=== PATIENT | female | born 1950 | race Caucasian/White ===

== ENCOUNTER 2019-07-06 15:05 | Inpatient (IN) | payer OTHER ==
[~2019-07-06] VITALS: Ht 152.4 cm; Wt 103.0 kg
--- NOTE | ~2019-07-06 | H ---
[facility] [place] [address] HISTORY AND PHYSICAL Name: YASMIN LAUREANO Room #: 249-P [facility] IN M.R.#: [id number] Admission: 07/06/19 ������������������ Attend Phys: Fern Roman MD Discharge: ������������������ Date of : 46 Report #: [id number] THIS REPORT FOR: //name// CC: Fern Doran DATE OF SERVICE: 07/06/2019 PRIMARY CARE PHYSICIAN: Dr. Melody Doran. PRIMARY RN REVIEW: Dr. Patterson. CHIEF COMPLAINT: Dizziness going on for 3 weeks. HISTORY OF PRESENT ILLNESS: The patient is a very pleasant 69-year-old female with a known history of rheumatoid arthritis and morbid obesity. The patient informs me that she has been having these brief episodes of dizziness; which resolved right away as soon as she sits down and puts her head down. She does not have any vertiginous component. She has not had any syncopal episode and she has felt uncomfortable in her left ear, but not sure about. She has not had any discharge or has not been diagnosed with ear infection. She informs me that the discomfort is mainly because she can hear her pulse in her ear, but she has not had any palpitations. She denies any chest pain associated with it and there is, however, exertional component with the dizziness, but the patient denies any history of hypertension, diabetes, hyperlipidemia and informs me that she has been pretty healthy pretty much all her life. The patient denies any fever, chills or night sweats. She has not had any sore throat, sinus drainage with rheumatoid arthritis. She understands that she is a high risk patient. PAST MEDICAL HISTORY: Significant for, 1. Rheumatoid arthritis. 2. Major depression. ALLERGIES: THE PATIENT IS ALLERGIC TO PENICILLIN, WHICH CAUSES SWELLING UP OF WHOLE BODY HIVES AND FEVER. PERSONNEL AND SOCIAL HISTORY: The patient denies any tobacco use. She is a lifetime nontobacco user. The patient has not had any alcohol in 9 years and prior to that, she was a very occasional social drinker. FAMILY HISTORY: Mother of heart problems and COPD and was tobacco user and father, she has not had any touch for the last 60 years. PAST SURGICAL HISTORY: 1. The patient has had 2 back surgeries with franko and screws in the lower back. 3. Cholecystectomy. [address] [address] HISTORY AND PHYSICAL Name: YASMIN LAUREANO Room #: 249-P [facility] IN .R.#: [id number] Admission: 07/06/19 ������������������ Attend Phys: Fern Roman MD Discharge: ������������������ Date of : 46 Report #: [id number] 3. Appendectomy. 4. Left knee surgery x 2. 5. Bilateral ankle surgery and the lateral malleolus. REVIEW OF SYSTEMS: Ten point review of system was done and please see HPI above. The patient denies any weakness or numbness of any part of body. Denies any difficulty with speech or difficulty with comprehension. The patient has not had any history of stroke and denies any history of diabetes, hypertension and hyperlipidemia. The patient informs me that she has not had any fall or any new musculoskeletal pain findings other than that her usual rheumatoid arthritis pain for which she takes Tylenol. PHYSICAL EXAMINATION: VITAL SIGNS: Temperature 36.7, heart rate 95, respirations 16, blood pressure 124/65, pulse oximetry 99% on room air. GENERAL: Alert and oriented to time, place and person, very pleasant 69-year-old female who is in no acute distress as long as she is lying down. HEENT: Normocephalic, atraumatic. Pupils equally round, reactive to light. Conjunctivae clear. Extraocular muscle movement are intact. Oropharynx is clear. Mucous membranes are moist. NECK: Supple, no JVD, no lymphadenopathy. HEART: S1, S2 regular. No murmur, no S3, no S4. LUNGS: Clear to auscultation bilaterally without any crackles or wheezes. ABDOMEN: Soft, nontender, nondistended, normal active bowel sounds. EXTREMITIES: Without any edema in both lower extremities. NEUROLOGIC: Completely nonfocal. LABORATORY DATA: WBC 9000, hemoglobin of 13.2, hematocrit 39.0, platelets 325. Differential is within normal limits. Chemistries indicate sodium 134, potassium 4.1, chloride 97, bicarbonate 26, anion gap 11, BUN 10, creatinine 0.8, estimated GFR 71, glucose 120, calcium 9.6, total bilirubin 0.6, AST 33, ALT 24 and alkaline phosphatase 95. Troponin I is less than 0.06. Total protein 7.3, albumin 4.1. CT scan of the head without contrast indicates no acute intracranial process and chest x-ray indicates no acute cardiopulmonary process with a large hiatal hernia. Electrocardiogram done in the Emergency Room indicates a sinus rhythm, atrial premature complexes and borderline prolonged QT interval. ASSESSMENT: 1. Dizziness with exertional component. 2. Rheumatoid arthritis. 3. Morbid obesity. 4. Elevated blood pressure without the diagnosis of hypertension. 5. Vascular tinnitus in the left ear. [facility] [address] [place] [address] HISTORY AND PHYSICAL Name: YASMIN LAUREANO Room #: 249-P ADM IN M.R.#: [id number] Admission: 07/06/19 ������������������ Attend Phys: Fern Roman MD Discharge: ������������������ Date of : 46 Report #: [id number] 6. Full code. 7. The patient does not have a durable power of district attorney for health and actually she informs me that she has no one that can be in a position where they can make decision for the patient and so she would like to work with the aids social worker to make advanced directives. PLAN: The patient is because of the exertional component to her dizziness, I would go ahead and do 3 sets of cardiac enzymes and Cardiology consult and will get an echocardiogram tomorrow morning. The patient also we will order also fasting lipids tomorrow morning, aspirin 81 mg daily to be started and will write for fall precaution as well as neuro checks. Sublingual nitroglycerin for chest pain or dizziness and will give Pepcid for GI prophylaxis and Lovenox for DVT prophylaxis. We will do lipid profile also tomorrow morning. Interestingly, on chest x-ray, the patient has a very large hiatal hernia and so we will write for reflux precaution and next we will go ahead and check TSH as well as a part of a maintenance. Plan of care was discussed with the patient in detail and for morbid obesity, the patient will benefit from padder cushion consult and a weight reduction plan. ��������������������������������������������� ���������������������������������������� By: ��������������������������������������������� 194 [id number] Fern Roman MD /nt
[~2019-07-06 15:05] MED LIST: ANTIDEPRESSANT; BONIVA150 MG PO; CALCIUM 600 +1 EAC1 PO; FISHOIL PO; FOLIC ACID; HYDROXYCHLOROQ200 M1 PO; METHOTREXATE; PREDNISONE 5 MG5 M1 PO; REMICADE IV; VIT D PO; WOMEN'S ONE DA1 EACH PO
[2019-07-06 15:06] VITALS: BP 124/65
[2019-07-06 16:24] LABS: ANION GAP 11 mmol/L (7-16); BUN 10 mg/dL (7-18); CALCIUM 9.6 mg/dL (8.5-10.1); CHLORIDE 97 mmol/L (98-107); CO2 26 mmol/L (21-32); CREATININE 0.8 mg/dL (0.6-1.0); GLUCOSE 120 mg/dL (74-106); POTASSIUM 4.1 mmol/L (3.5-5.1); SODIUM 134 mmol/L (136-145)
[2019-07-06 16:34] LABS: ALBUMIN 4.1 g/dL (3.4-5.0); SGOT 33 U/L (15-37); SGPT 24 U/L (30-65); TOTAL BILIRUBIN 0.6 mg/dL (<0.1-1.0); TOTAL PROTEIN 7.3 g/dL (6.4-8.2); TROPONIN-I <0.06 ng/mL (<0.06)
[2019-07-06 16:47] LABS: ABSOLUTE NEUTROPHILS 4.5 thou/uL (1.4-8.2); BASOPHILS 0.6 % (0.0-2.0); EOSINOPHILS 0.3 % (0.0-3.0); HEMOGLOBIN 13.2 gm/dL (12.0-15.0); LYMPHOCYTES 42.1 % (24.0-44.0); MCH 32.5 pg (26.0-34.0); MCHC 33.8 g/dL (28.0-37.0); MCV 96.1 fL (80.0-100.0); PLATELET COUNT 325 thou/uL (150-400); RBC 4.06 mil/uL (4.20-5.00); RDW 13.9 % (10.5-14.5)
[2019-07-06 18:39] VITALS: BP 150/66
--- NOTE | 2019-07-06 18:59 | NUR ---
ATTEMPTED TO CALL REPORT TO ICU. NURSE STATES SHE WILL CALL BACK IN 5 MIN
[2019-07-06 19:29] VITALS: BP 135/78
[2019-07-06 19:45] VITALS: BP 147/80
[2019-07-07] VITALS (10 sets, daily range): BP systolic 96–168; BP diastolic 45–71
[2019-07-07 02:19] LABS: TROPONIN-I <0.06 ng/mL (<0.06)
[2019-07-07] MEDS ORDERED: TRAMADOL 50 MG50 MG PO (02:30)
[2019-07-07] MEDS ORDERED: SULFASALAZINE500 M5 PO (02:31)
[2019-07-07] MEDS ORDERED: METHOTREXATE 22.5 MG PO (02:32)
[2019-07-07] MEDS ORDERED: VOLTAREN GEL 1100 G2 TOP (02:32)
[2019-07-07] MEDS ORDERED: LEXAPRO20 MG PO (02:33)
[2019-07-07] MEDS ORDERED: NORCO 5-325 TA1 EAC1 PO (02:33)
[2019-07-07] MEDS ORDERED: CRESTOR40 MG PO (02:33)
[2019-07-07] MEDS ORDERED: AMBIEN 5 MG TABL5 M1 PO (02:34)
[2019-07-07] MEDS ORDERED: HYDROCHLOROTHIA25 M2 PO (02:34)
[2019-07-07] MEDS ORDERED: NEXIUM40 MG PO (02:36)
[2019-07-07 03:04] LABS: CHOLESTEROL 124 mg/dL (<200); HDL CHOLESTEROL 66 mg/dL (>40); LDL CHOLESTEROL 46 mg/dL (<100); TC:HDL 1.9 Ratio (Not establshd); TRIGLYCERIDE 63 mg/dL (<150); VLDL 13 mg/dL (<40)
--- NOTE | 2019-07-07 06:30 | NUR ---
PT ARRIVED IN ICU FROM ER AT 1940 LAST NIGHT. PT'S STATUS IS M/S TELE. PT A&O; DENIES DIZZINESS AT THIS TIME. PT SAYS THAT SHE ONLY HAS DIZZY SPELLS WHEN UP AND MOVING AROUND. UNSURE OF CAUSE AT THIS TIME. TROPONIN CHECKED AGAIN TWICE, BOTH WERE NEGATIVE. OBTAINED ORDER FOR TRAMADOL FOR PT'S ARTHRITIS PAIN. PT HAD AN EPISODE OF NAUSEA EARLIER THIS MORNING, ZOFRAN GIVEN. WILL CONTINUE TO MONITOR.
--- NOTE | 2019-07-07 14:42 | EKG ---
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 : 1950 Requested By: Manpreet Medel Order Number: [id number] MD: Henry Gold Measurements Intervals [place] Rate: 94 P: -22 FL: 138 QRS: 4 QRSD: 101 T: 32 QT: 386 QTc: 483 Interpretive Statements Sinus rhythm Atrial premature complexes RSR' in V1 or V2, right VCD Borderline prolonged QT interval No previous ECG available for comparison Electronically Signed On 07-07-2019 14:42:19 CDT by Henry Gold [email or web address] ��������������������������������������������� <ELECTRONICALLY SIGNED> ���������������������������������������� By: Henry Gold MD ��������������������������������������������� 07/07/19 1442 1520 1520 Henry Gold MD /LEIGHANN
--- NOTE | 2019-07-07 17:45 | NUR ---
Assumed care approx. 0700 this AM. Patient made aware today that she has a hiatal hernia, but unsure as to why she has been having dizzy episodes. Vitals have been stable. No distress noted. Chronic pain noted due to her arthritis. Patient is prepared and ready to work with therapies to assess her strength and ability in hopes to have no more syncopal episodes. Patient did well with ambulation today. Patient gave herself a bed bath and got up to do her own oral care. Patient hopeful to not have to be in the hospital much longer. Progression made toward plan of care in place.
[2019-07-08 04:19] VITALS: BP 132/45
--- NOTE | 2019-07-08 04:27 | NUR ---
PT RESTED WELL, PAIN WELL MANAGED, NO EPSIDOES OF DIZZINESS OR SYCOPE AT NIGHT.
[2019-07-08 06:47] LABS: FOLIC ACID 5.7 ng/mL (8.6-58.9); TSH 1.996 uIU/mL (0.358-3.740)
[2019-07-08 08:59] VITALS: BP 140/59
[2019-07-08 16:23] VITALS: BP 135/63
[2019-07-08 16:25] VITALS: BP 148/67
[2019-07-08 16:27] VITALS: BP 124/66
--- NOTE | 2019-07-08 16:32 | NUR ---
PATIENT REMIANS A&O X 4, PLEASANT AND COOPERATIVE WITH CARES. DENIES PAIN. DIZZINESS WHEN STANDING AT TIMES. ORTHOSTATIC BLOOD PRESSURES COMPLETE AND CHARTED. 20 POINT DROP IN SYSTOLIC BP FROM SITTING TO STANDING HOWEVER, PATIENT DENIES DIZZINESS AT THAT TIME. WORKED WITH PT AND OT. UP IN CHAIR PART OF THE DAY. PATIENT IN MRI NOW. NO FURTHER CONCERNS AT THIS TIME. WILL CONTINUE TO MONITOR AND CARE PER PLAN OF CARE.
[2019-07-08 20:15] VITALS: BP 134/60
[2019-07-09 04:00] VITALS: BP 134/62
--- NOTE | 2019-07-09 05:13 | NUR ---
PT SLEEPING NOW. HAS BEEN UP AND ABLE TO AMBULATE IN ROOM WITHOUT C/O OF ANY DIZZINESS. PT SAYS SHE IS FEELING BETTER. REQUIRED A COUPLE DOSES OF TRAMADOL DURING SHIFT.
--- NOTE | 2019-07-09 12:37 | NUR ---
ASSUMED CARE OF PT AT AT 0700 THIS SHIFT. PT HAS BEEN COOPERATIVE, HAS HAD SOME CHRONIC PAIN, NO NEW PAIN. PT IS FEELING LESS DIZZINESS THIS SHIFT. PT IS CURRENTLY RESTING COMFORTABLY, ASSESSMENTS ARE DOCUMENTED. PT HAS NOT HAD VISITORS THIS SHIFT, EDUCATION WAS PROVIDED. PLAN OF CARE IS TO DISCHARGE PT THIS SHIFT.
[2019-07-09] MEDS ORDERED: ASA81BEC PO (13:54)
[2019-07-09] MEDS ORDERED: DIVALPROEX SOD500 M1 PO (13:55)
[2019-07-09] MEDS ORDERED: FOLIC ACID1 MG PO (13:55)
[2019-07-09] MEDS ORDERED: B12INJ IM (13:55)
[2019-07-09 14:05] VITALS: BP 134/62
== END 2019-07-09 15:08 | disposition home or self-care (01) | DRG 149 ==
LOC: ER 15:05 → ICU 17:12 → EROBS 17:12 → ICU 19:33
PROVIDERS: Emergency Medicine; Nurse Practitioner Family; ADMIT Internal Medicine
DX: H81.319 Aural vertigo, unspecified ear (principal); F11.20 Opioid dependence, uncomplicated; Z68.41 Body mass index [BMI] 40.0-44.9, adult; E66.01 Morbid (severe) obesity due to excess calories; M06.9 Rheumatoid arthritis, unspecified; K44.9 Diaphragmatic hernia without obstruction or gangrene; K21.9 Gastro-esophageal reflux disease without esophagitis; G89.4 Chronic pain syndrome; E78.5 Hyperlipidemia, unspecified; I10 Essential (primary) hypertension; F13.90 Sedative, hypnotic, or anxiolytic use, unspecified, uncomplicated; F32.9 Major depressive disorder, single episode, unspecified; H93.A2 Pulsatile tinnitus, left ear; Z90.710 Acquired absence of both cervix and uterus; Z90.49 Acquired absence of other specified parts of digestive tract; Z79.899 Other long term (current) drug therapy; Z98.1 Arthrodesis status; Z88.0 Allergy status to penicillin; Z82.49 Family history of ischemic heart disease and other diseases of the circulatory system; Z83.6 Family history of other diseases of the respiratory system; Z79.82 Long term (current) use of aspirin
CPT/HCPCS: 10203

== ENCOUNTER 2020-02-21 15:23 | Emergency (ER) | payer OTHER ==
[~2020-02-21] VITALS: Ht 157.5 cm; Wt 127.0 kg
[~2020-02-21 15:23] MED LIST changes: +AMBIEN 5 MG TABL5 M1 PO; +ASA81BEC PO; +B12INJ IM; +CRESTOR40 MG PO; +DIVALPROEX SOD500 M1 PO; +FOLIC ACID1 MG PO; +HYDROCHLOROTHIA25 M2 PO; +LEXAPRO20 MG PO; +METHOTREXATE 22.5 MG PO; +NEXIUM40 MG PO; +NORCO 5-325 TA1 EAC1 PO; +SULFASALAZINE500 M5 PO; +TRAMADOL 50 MG50 MG PO; +VOLTAREN GEL 1100 G2 TOP
[2020-02-21] MEDS ORDERED: MAGNESIUM CITR296 ML PO (21:43)
[2020-02-21] MEDS ORDERED: LIDOCAINE-PRILO30 GM RECTAL (21:43)
[2020-02-21 22:17] VITALS: BP 149/62
== END 2020-02-21 22:55 | disposition home or self-care (01) ==
LOC: ER 15:23
DX: K59.00 Constipation, unspecified (principal); M06.9 Rheumatoid arthritis, unspecified; Z79.899 Other long term (current) drug therapy; Z88.0 Allergy status to penicillin; Z90.49 Acquired absence of other specified parts of digestive tract; Z90.710 Acquired absence of both cervix and uterus